=== PATIENT | female | born 1955 | race Caucasian/White ===

== ENCOUNTER 2022-10-11 10:20 | Observation (INO) ==
[~2022-10-11 10:20] MED LIST: Buffered Lidocaine 1% SYRIN 1 ml INTRADERM ONE; Lactated Ringers 1000 ml BAG 1,000 ML IV SCH; Naloxone 0.4 mg VIAL 0.4 mg/ml 1 ml VIAL IV PRN; Ondansetron 4 mg VIAL 2 MG/ML 2 ml VIAL IV PRN; fentaNYL 100 mcg/2 ml 50 MCG/ML VIAL IV PRN
[2022-10-11 11:22] LABS: Rapid COVID-19 Molecular Undetected (Undetected)
[2022-10-11] MEDS ORDERED: ceFAZolin 2 GM PREMIX 2 GM/50 ML BAG ONE (11:22)
[2022-10-11] MEDS ORDERED: Midazolam 2 mg/2 ml VIAL 1 mg/ml 2 ml VIAL (2 mg) ONE (11:28)
[2022-10-11] MEDS ORDERED: Bupivacaine 0.5% SDV PF 30ML VIAL ONE (11:28)
[2022-10-11] MEDS ORDERED: Dexamethasone IV 4 MG/ML VIAL 1 ml VIAL ONE ×2 (11:28→13:44)
[2022-10-11] MEDS ORDERED: Lidocaine 2% PF 5 ML VIAL ONE (12:32)
[2022-10-11] MEDS ORDERED: Ropivacaine 5 MG/ML 20 ML VIAL 0.5% (100 MG) ONE (12:43)
[2022-10-11] MEDS ORDERED: Ondansetron 4 mg VIAL 2 MG/ML 2 ml VIAL ONE (13:44)
[2022-10-11] MEDS ORDERED: Acetaminophen IV 1 GM/100ML 1,000 MG/100 ML BAG IV ONE (14:03)
[2022-10-11] MEDS ORDERED: Propofol 10 MG/ML 20 ML BTL ONE ×2 (14:32→15:19)
[2022-10-11] MEDS ORDERED: fentaNYL 100 mcg/2 ml 50 MCG/ML VIAL ONE (15:10)
[2022-10-11] MEDS ORDERED: Ondansetron ODT 4 mg TAB 4 MG TAB PO PRN (16:12)
[2022-10-11] MEDS ORDERED: Lactulose 30 ml UDC PO PRN (16:12)
[2022-10-11] MEDS ORDERED: Magnesium Hydroxide LIQ 30 ML UDC PO PRN (16:12)
[2022-10-11] MEDS ORDERED: Morphine 2 MG/ML SYRINGE IV PRN (16:12)
[2022-10-11] MEDS ORDERED: Ondansetron 4 mg VIAL 2 MG/ML 2 ml VIAL IV PRN (16:12)
[2022-10-11] MEDS: Lactated Ringers 1000 ml BAG 1,000 ML IV SCH (19:32)
[2022-10-11] MEDS: Magnesium Hydroxide LIQ 30 ML UDC PO SCH (19:44)
[2022-10-12] MEDS: ceFAZolin 1 GM ADVAN 1 GM in NS 0.9% 50 ML 50 ML IVPB SCH ×3 (00:56→14:47)
[2022-10-12] MEDS: Lactated Ringers 1000 ml BAG 1,000 ML IV SCH (05:20)
[2022-10-12 06:52] LABS: Hematocrit 36.8 % (35-45); Hemoglobin 12.7 g/dL (11.5-14.3); Mean Platelet Volume 7.5 fL (7.5-11.2); Platelet Count 257 10^3/uL (150-450)
[2022-10-12 07:19] LABS: Calcium 9.1 mg/dL (8.6-10.3); Creatinine, Serum 0.74 mg/dL (0.51-0.95); eGFR CKD-EPI 90.3 (>60)
[2022-10-12] MEDS ORDERED: Vitamin THERAPEUTIC TAB PO SCH (09:00)
[2022-10-12] MEDS: Magnesium Hydroxide LIQ 30 ML UDC PO SCH (09:16)
[2022-10-12 14:05] VITALS: BP 97/56
== END 2022-10-12 16:25 | disposition home or self-care (01) ==
LOC: OR 10:20 → SSU 10:20 → EDSTATUS 10-15 14:00
PROVIDERS: ADMIT Orthopaedic Surgery Adult Reconstructive Orthopaedic Surgery; ATTEND Orthopaedic Surgery Adult Reconstructive Orthopaedic Surgery

== ENCOUNTER 2023-05-09 19:01 | Inpatient (IN) ==
[2023-05-09] MEDS: Morphine 10 MG/ML VIAL (1 ml) IV ONE (20:51)
[2023-05-09] MEDS: Lactated Ringers 1000 ml BAG 1,000 ML IV ONE (20:52)
[2023-05-09 22:01] LABS: ABS Lymphocytes 0.5 10^3/uL (1.0-4.8); ABS Monocytes 0.2 10^3/uL (0.0-0.9); ABS Neutrophils 9.5 10^3/uL (1.5-7.6); ABS Nucleated RBC 0.01 10^3/ul; Hematocrit 42.7 % (35-45); Hemoglobin 14.5 g/dL (11.5-14.3); Mean Corpuscular Hemoglobin 29.3 pg (27-33); Mean Corpuscular Hgb Conc 33.9 g/dL (31-36); Mean Corpuscular Volume 86.4 fL (80-97); Mean Platelet Volume 7.9 fL (7.5-11.2); Nucleated Red Blood Cells % 0.1 %/100WBC (0.0-0.8); Platelet Count 253 10^3/uL (150-450); Red Blood Count 4.94 10^6/uL (3.63-4.92); Red Cell Distribution Width 13.3 % (12-17); White Blood Count 10.2 10^3/uL (3.8-11.8)
[2023-05-09 22:07] LABS: Albumin 4.3 g/dL (3.2-5.2); Albumin/Globulin Ratio 1.4 (1-3); C Reactive Protein 5.7 mg/L (<8.01); Calcium 9.3 mg/dL (8.6-10.3); Creatinine, Serum 0.84 mg/dL (0.51-0.95); Globulin 3.1 g/dL (2-4); Potassium 3.7 mmol/L (3.5-5.0); Total Bilirubin 0.5 mg/dL (0.2-1.0); Total Protein 7.4 g/dL (6.4-8.9); eGFR CKD-EPI 77.1 (>60)
[2023-05-09 22:23] LABS: Urine Appearance Clear; Urine Bilirubin Negative (Negative); Urine Blood Trace (Negative); Urine Color Light-Yellow; Urine Glucose 1+ (>=70 mg/dL) (Negative); Urine Ketones 3+ (Negative); Urine Nitrite Negative (Negative); Urine Protein Negative (Negative); Urine Specific Gravity 1.018 (1.002-1.030); Urine Urobilinogen Negative (Negative); Urine pH 6.5 (5.0-8.0)
[2023-05-09] MEDS: Iohexol 350 (CONTRAST) 500 ML MDV IV ONE (22:47)
[2023-05-09] MEDS ORDERED: ceFAZolin 2 GM in NS PREMIX 2 GM/100 ML BAG IVPB ONE (23:17)
[2023-05-09] MEDS ORDERED: Midazolam 2 mg/2 ml VIAL 1 mg/ml 2 ml VIAL (2 mg) ONE (23:34)
[2023-05-09] MEDS ORDERED: fentaNYL 100 mcg/2 ml 50 MCG/ML VIAL ONE (23:34)
[2023-05-09] MEDS ORDERED: Rocuronium 50 mg VIAL 10 mg/ml 5 ml VIAL (50 mg) ONE (23:36)
[2023-05-09] MEDS ORDERED: Propofol 10 MG/ML 20 ML BTL ONE (23:36)
[2023-05-09] MEDS: ceFAZolin 2 GM/50 ML BAG IV ONE (23:42)
[2023-05-10] MEDS ORDERED: ceFAZolin VIAL VIAL ONE (00:42)
[2023-05-10] MEDS ORDERED: metroNIDAZOLE IV 500 MG/100ML 500 MG/100 ML BAG ONE (00:52)
[2023-05-10] MEDS ORDERED: Rocuronium 50 mg VIAL 10 mg/ml 5 ml VIAL (50 mg) ONE (00:54)
[2023-05-10] MEDS ORDERED: Acetaminophen IV 1 GM/100ML 1,000 MG/100 ML BAG IV ONE (00:59)
[2023-05-10] MEDS ORDERED: fentaNYL 100 mcg/2 ml 50 MCG/ML VIAL ONE (01:01)
[2023-05-10] MEDS ORDERED: Naloxone 0.4 mg VIAL 0.4 mg/ml 1 ml VIAL IV PRN (01:49)
[2023-05-10] MEDS ORDERED: fentaNYL 100 mcg/2 ml 50 MCG/ML VIAL IV PRN (01:49)
[2023-05-10] MEDS ORDERED: HYDROmorphone 1 MG/1 ML SYRINGE IV PRN (01:49)
[2023-05-10] MEDS ORDERED: Ondansetron 4 mg VIAL 2 MG/ML 2 ml VIAL IV PRN ×2 (01:49→05:06)
[2023-05-10] MEDS ORDERED: Propofol 10 MG/ML 20 ML BTL ONE (03:01)
[2023-05-10] MEDS ORDERED: Bupivacaine 0.25% SDV 30 ML ONE (03:10)
[2023-05-10] MEDS ORDERED: Naloxone 0.4 mg VIAL 0.4 mg/ml 1 ml VIAL IV PUSH PRN (04:21)
[2023-05-10] MEDS ORDERED: Morphine PCA ADULT 5 MG/ML 30 ML PCA SCH (05:00)
[2023-05-10] MEDS ORDERED: ceFAZolin 2 GM in NS PREMIX 2 GM/100 ML BAG IVPB SCH (06:00)
[2023-05-10] MEDS: Morphine PCA ADULT 5 MG/ML 30 ML PCA SCH ×2 (06:03→10:20)
[2023-05-10] MEDS: Lactated Ringers 1000 ml BAG 1,000 ML IV SCH (06:17)
[2023-05-10] MEDS: ceFAZolin 2 GM PREMIX 2 GM/50 ML BAG IV SCH (06:21)
[2023-05-10] MEDS: metroNIDAZOLE IV 500 MG/100ML 500 MG/100 ML BAG IVPB SCH (08:58)
[2023-05-10] MEDS: Pantoprazole VIAL 40 MG VIAL IV SCH (13:58)
[2023-05-11 05:49] LABS: ABS Basophils 0.1 10^3/uL (0.0-0.1); ABS Lymphocytes 1.8 10^3/uL (1.0-4.8); ABS Monocytes 0.8 10^3/uL (0.0-0.9); ABS Neutrophils 6.8 10^3/uL (1.5-7.6); Eosinophil % 0.4 %; Hematocrit 36.3 % (35-45); Hemoglobin 12.2 g/dL (11.5-14.3); Lymphocyte % 19.1 %; Mean Corpuscular Hemoglobin 29.5 pg (27-33); Mean Corpuscular Hgb Conc 33.7 g/dL (31-36); Mean Corpuscular Volume 87.4 fL (80-97); Mean Platelet Volume 8.1 fL (7.5-11.2); Platelet Count 239 10^3/uL (150-450); Red Blood Count 4.15 10^6/uL (3.63-4.92); Red Cell Distribution Width 13.8 % (12-17); White Blood Count 9.5 10^3/uL (3.8-11.8)
[2023-05-11 06:08] LABS: Calcium 8.7 mg/dL (8.6-10.3); Creatinine, Serum 0.75 mg/dL (0.51-0.95); Potassium 3.7 mmol/L (3.5-5.0); eGFR CKD-EPI 88.3 (>60)
[2023-05-11] MEDS: Heparin 5000 UNITS/ML 1 mL VIAL SUBCUT SCH (08:15)
[2023-05-11] MEDS ORDERED: oxyCODONE/Acetamin 5/325 mg TAB PO PRN (13:25)
[2023-05-12 05:54] LABS: ABS Basophils 0.2 10^3/uL (0.0-0.1); ABS Eosinophils 0.2 10^3/uL (0.0-0.5); ABS Lymphocytes 1.6 10^3/uL (1.0-4.8); ABS Monocytes 0.4 10^3/uL (0.0-0.9); ABS Neutrophils 4.9 10^3/uL (1.5-7.6); Eosinophil % 2.4 %; Hematocrit 34.4 % (35-45); Hemoglobin 11.7 g/dL (11.5-14.3); Lymphocyte % 22.2 %; Mean Corpuscular Hemoglobin 29.5 pg (27-33); Mean Corpuscular Volume 86.6 fL (80-97); Mean Platelet Volume 7.6 fL (7.5-11.2); Nucleated Red Blood Cells % 0.1 %/100WBC (0.0-0.8); Platelet Count 217 10^3/uL (150-450); Red Blood Count 3.97 10^6/uL (3.63-4.92); Red Cell Distribution Width 13.3 % (12-17); White Blood Count 7.3 10^3/uL (3.8-11.8)
[2023-05-12] MEDS: Amoxicillin/Clavul 875/125 TAB (Augmentin 875 tab) PO SCH (10:05)
[2023-05-13] MEDS: Heparin 5000 UNITS/ML 1 mL VIAL SUBCUT SCH (05:35)
[2023-05-13 10:45] VITALS: BP 120/70
== END 2023-05-13 11:42 | disposition home or self-care (01) | DRG 331 ==
LOC: EDHOLD 19:01 → ED 19:01 → SSU 23:14 → SDS 23:30
PROVIDERS: ADMIT Surgery; ATTEND Surgery